=== PATIENT | male | born 1975 | race Caucasian/White ===

== ENCOUNTER 2019-12-02 10:32 | Outpatient (CLI) | payer OTHER, SELFPAY ==
--- NOTE | ~2019-12-02 | XR_ITS ---
EXAMINATION:XR cervical spine 4-5V DATE: 12/02/2019 10:57 INDICATION: Neck pain TECHNIQUE: AP, lateral, lateral swimmers and odontoid views of the cervical spine are provided. COMPARISON: None FINDINGS: Bone alignment is normal. There are changes of anterior fusion at C5-6. The odontoid is int act. No fracture is identified. The vertebral body heights are normal. The intervertebral disc spaces above and below the fusion are also normal. Prevertebral soft tissues are normal. IMPRESSION: 1. Changes of anterior fusion at C5-6 without acute findings. Reviewed, dictated and finalized at location A.
== END 2019-12-02 10:33 | disposition home or self-care (01) ==
PROVIDERS: PCP Family Medicine; Visit Provider Family Medicine
DX: M54.2 Cervicalgia (principal); M50.90 Cervical disc disorder, unspecified, unspecified cervical region; Z98.1 Arthrodesis status
CPT/HCPCS: 72050

== ENCOUNTER → 2020-04-15 10:00 | Outpatient (CLI) | payer OTHER, SELFPAY ==
--- NOTE | ~2020-04-15 | CT_ITS ---
EXAMINATION: CT abdomen pelvis w con EXAM DATE: 04/15/2020 10:25 INDICATION: Unspecified abdominal hernia, without obstruction. TECHNIQUE: Spiral CT of the abdomen and pelvis was performed following intravenous injection of 100 m L Omnipaque 350. Axial, coronal and sagittal images were reviewed. The dose-length product (DLP) fo r this examination was 923.65 mGy-cm. The exposure was tailored according to patient size (auto mA e xposure control), and iterative reconstruction (ASIR) was used as additional dose reduction technique . There is no prior study for comparison. FINDINGS: The liver, spleen, adrenal glands and pancreas are unremarkable. Gallbladder is unremarkab le. No biliary obstruction. Portal and splenic veins are patent. Kidneys enhance symmetrically. T here is no hydronephrosis. The prostate is unremarkable. The bladder is unremarkable. There is no retroperitoneal or pelvic lymphadenopathy. There are small to moderate size left, small right ingu inal fat-containing hernias. The appendix is normal. The stomach and small bowel are unremarkable. There is expected amount of c olonic stool. No free intraperitoneal gas. The heart is normal in size. There are no pericardial or pleural effusions. The lung bases are unremarkable. The bones are unremarkable. IMPRESSION: Small to moderate left, small right inguinal hernias. Reviewed, dictated and finalized at location B.
== END ==
PROVIDERS: PCP Family Medicine; Visit Provider Physician Assistant
DX: K40.20 Bilateral inguinal hernia, without obstruction or gangrene, not specified as recurrent (principal)
CPT/HCPCS: 74177; Q9967

== ENCOUNTER 2020-05-22 11:44 | Outpatient (CLI) | payer OTHER, SELFPAY | END 2020-05-22 11:45 | disposition home or self-care (01) | PROVIDERS: PCP Family Medicine; Visit Provider Surgery | DX: K40.20 Bilateral inguinal hernia, without obstruction or gangrene, not specified as recurrent (principal); Z01.818 Encounter for other preprocedural examination | CPT/HCPCS: 36415; 86850; 86900; 86901 ==

== ENCOUNTER 2020-06-01 01:37 | Outpatient (CLI) | payer OTHER, SELFPAY ==
[2020-06-01 20:39] LABS: SARS-CoV-2 RNA PCR Negative
== END 2020-06-01 01:38 | disposition home or self-care (01) ==
LOC: ANHCOVIDDT 01:37
PROVIDERS: PCP Family Medicine; Visit Provider Surgery
DX: Z01.812 Encounter for preprocedural laboratory examination (principal); Z20.828 Contact with and (suspected) exposure to other viral communicable diseases
CPT/HCPCS: 87635; C9803; U0003

== ENCOUNTER 2020-06-04 01:17 | Day surgery (SDC) | payer OTHER, SELFPAY ==
[2020-05-21 11:43] VITALS: BMI 28.8
[2020-06-04] VITALS (10 sets, daily range): BP systolic 111–139; BP diastolic 68–92; PULSE 50–88; RESP 12–16; TEMP 36.3–36.6; O2SAT 94–100
--- NOTE | 2020-06-04 10:44 | WPDANESEPPF ---
Anes - Initial Pre Proc Eval Procedure: Operation Date: 06/04/20 11:30 Proposed Procedures p Robotic Assisted Laparoscopic Bilateral Inguinal Hernia Repair With Mesh - Arcelia Ha MD Date/Time: 06/04/20 10:44 Surgeon: Arcelia Ha MD Pre Op Diagnosis: bilat inguinal hernia Patient Data Age: 44 Gender: M Height: 5 ft 9 in Weight: 88.45 kg Allergies Allergy/AdvReac Type Severity Reaction Status Date / Time atropine Allergy Severe Anaphylactic Verified 05/21/20 11:43 Shock oxybutynin Allergy Severe Anaphylactic Verified 05/21/20 11:43 Shock Home Medications Medication Instructions Recorded Confirmed Type acetaminophen 500 mg tablet 500 mg PO Q6H PRN 04/23/20 06/04/20 History ascorbic acid (vitamin C) [Vitamin 500 mg PO DAILY 05/21/20 06/04/20 History C] multivitamin 1 tablet PO DAILY 05/21/20 06/04/20 History Patient hx anesthesia problems: none Family hx anesthesia problems: none PMFSH Past Medical History Medical History Cervical disc disease Erectile dysfunction FH: CAD (coronary artery disease) H/O Meniere's disease History of skin cancer Lumbar disc disease Mixed hyperlipidemia Nephrolithiasis Surgical History Surgical History 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 S/P cervical spinal fusion 2016 Family History Family History Father Diabetes mellitus Hypertension Sibling Family history of mental disorder Mother Hypertension Grandparent Family history of malignant neoplasm of breast Social History Social History Smoking packs per day: 1 Smoking cigarettes per day: 20.0 Years smoked: 20 Smoking pack-years: 20.00 Smoking status: Unknown if ever smoked (uses e-cigarettes) Tobacco type: cigarettes and e-cigarettes/vaping Second hand tobacco smoke exposure: No Smoking end date: 07/24/14 Additional smoking assessment comments: QUIT CIGARETTES 2014, CURRENTLY USING VAPOR CIGARETTE Alcohol intake: current Substance use: current Substance use type: marijuana Last use: 1 WEEK AGO Additional occupation/education comments: [employer] Spiritual care concerns: No Anes - Eval Final PreProcedure Day of Procedure 06/04/20 10:44 Patient weight: overweight Heart: regular rate and rhythm Lungs: clear to auscultation Airway: Mallampati scale class II Neurological: alert and oriented Last oral intake: >/= 8 hours ASA classification: II Emergent: no Anesthetic plan: proceed Anesthesia type and monitoring: general ETT and standard monitoring Informed Consent: The patient's anesthetic plan and its attendant risks and benefits were discussed with the patient/family/POA. Questions were solicited and answers provided to the satisfaction of the patient/family/POA.
[2020-06-04] MEDS: SCOPOLAMINE 1.5 MG PATCH TRANSDERM (10:48)
[2020-06-04] MEDS: ACETAMINOPHEN 500 MG TABLET 1000 MG PO (10:48)
[2020-06-04] MEDS: KETOROLAC 15 MG/ML VIAL (*BKC) IV PUSH (10:49)
[2020-06-04] MEDS: LACTATED RINGERS 1,000 ML 30 ML IV CONT ×3 (10:49→15:12)
--- NOTE | 2020-06-04 11:15 | WPDHPUPDATE1 ---
History and Physical Update Update Date/Time: 06/04/20 11:15 History and Physical has been reviewed, including an updated exam of the patient. There are NO changes in the patient's condition. Risks, benefits, and alternatives have been discussed and questions answered. Patient agrees to proceed with procedure.
[2020-06-04] MEDS: MIDAZOLAM HCL (*CRX) 2 MG/2 ML VIAL IV PUSH (11:37)
[2020-06-04] MEDS: ceFAZolin 2 GM/D5W 50 ML 2 GM/50 ML BAG IVPB (11:40)
--- NOTE | 2020-06-04 14:03 | PM.PROC ---
Procedure Note - Detailed Date of procedure: 06/04/20 Pre-op diagnosis: bilat inguinal hernia Post-op diagnosis: same Procedure performed: robotic assisted bilateral inguinal hernia repair with 15 x 10 cm Progrip mesh bilaterally Description of procedure: Patient was brought into the operating room and placed in the supine position. After adequate induction of general anesthesia, the patient was prepped and draped in normal sterile fashion. A time-out was then done to verify the patient's identity, as well as the procedure being performed. Began by making a 8 mm incision in the supraumbilical region, a Veress needle was then placed into the peritoneal cavity. CO2 gas was then insufflated and after adequate pneumoperitoneum was achieved, the Veress needle was removed. I then placed an 8 mm trocar through this incision. I then placed the endoscope through this trocar site and under direct visualization placed 2 further 8 mm ports in the right and left mid abdomen. The [employer] robot was then docked to the 3 trocar sites. I then scrubbed out and went to the robotic console. Upon examining the pelvis, it was noted that the patient had bilateral inguinal hernias. I began by making a preperitoneal flap approximately 6 cm superior to the defect on the right. This flap was carried medially past the umbilical ligaments and laterally to the transversalis. I then began dissection of my medial compartment taking this down to the pubic tubercle. I then began the lateral dissection taking this down to the transversalis fascia. Once these compartments were achieved, I began dissection around the cord structures. It was noted at this point that the patient had a moderate sized indirect hernia. Patient also had a lipoma the cord. Using careful dissection, was able to reduce the lipoma cord as well separate the indirect hernia off the cord structures. Once this was adequately done, I went ahead and placed a 15 x 10 piece of Pro [employer] mesh into the abdominal cavity. The mesh was carefully positioned, centering the center of the mesh over the indirect defect. Once this was done, was very satisfied with our tension-free repair. Repeating the procedure on the left, I began by making a preperitoneal flap approximately 6 cm superior to the defect on the left. This flap was carried medially past the umbilical ligaments and laterally to the transversalis. I then began dissection of my medial compartment taking this down to the pubic tubercle. I was able to connect this to the repair on the right side. I then began the lateral dissection taking this down to the transversalis fascia. Once these compartments were achieved, I began dissection around the cord structures. It was noted at this point that the patient had a large indirect hernia. Patient also had a lipoma the cord. Using careful dissection, was able to reduce the lipoma cord as well separate the indirect hernia off the cord structures. Once this was adequately done, I went ahead and placed a 15 x 10 piece of Pro [employer] mesh into the abdominal cavity. The mesh was carefully positioned, centering the center of the mesh over the indirect defect. Once this was done, was very satisfied with our tension-free repair. I then closed the peritoneal flap with a running 2.0 V Lock suture on both sides. The abdomen was then desufflated, and all ports were removed. All incisions were then closed with the 4.0 monocryl suture. Dermabond was placed on each wound. The patient tolerated the procedure well, was extubated in the operating room postoperatively, and will now be transferred to the recovery room in stable condition. Implants: 15 x 10 progrip mesh x 2 Anesthesia: GETA Surgeon: Arcelia Ha MD Estimated blood loss (mL): 10 Drains: No Packing: No Pathology: none sent Complications: No immediate complications Condition: stable Disposition: PACU Findings: indirect bilateral inguinal hernia
[2020-06-04] MEDS: fentaNYL CITRATE INJ (*CRX) 100 MCG/2 ML VIAL 25 MCG IV PUSH ×8 (14:37→15:05)
[2020-06-04] MEDS: oxyCODONE HCL (*CRX) 5 MG TAB IR PO (15:48)
== END 2020-06-04 16:26 | disposition home or self-care (01) ==
PROVIDERS: PCP Family Medicine; Visit Provider Surgery
PROC: 8E0Y4CZ Robotic Assisted Procedure of Lower Extremity, Percutaneous Endoscopic Approach (ICD-10-PCS; CPT 49650; principal; 2020-06-04 11:30)
DX: K40.20 Bilateral inguinal hernia, without obstruction or gangrene, not specified as recurrent (principal); Z98.1 Arthrodesis status; F17.290 Nicotine dependence, other tobacco product, uncomplicated; F12.90 Cannabis use, unspecified, uncomplicated
CPT/HCPCS: 49650; S2900; A9270; C1781; J0690; J1100; J1170; J1885; J2250; J2405; J2704; J2710; J3010; J7030; J7120

== ENCOUNTER 2021-04-20 15:02 | Outpatient (CLI) | payer OTHER, SELFPAY ==
--- NOTE | ~2021-04-20 | US_ITS ---
EXAMINATION: US soft tissue groin RT DATE: 04/20/2021 16:10 INDICATION: Right groin pain TECHNIQUE: Multiple grayscale images of the region of concern at the right groin were obtained includ ing with Valsalva. COMPARISON: None FINDINGS/IMPRESSION: No abnormal masses, fluid collections or hernia identified at the region of concern. Reviewed, dictated and finalized at location A.
== END 2021-04-20 15:03 ==
PROVIDERS: Visit Provider Surgery
DX: R10.30 Lower abdominal pain, unspecified (principal); R30.0 Dysuria
CPT/HCPCS: 76882

== ENCOUNTER 2021-09-23 12:36 | Outpatient (CLI) | payer OTHER, SELFPAY ==
--- NOTE | ~2021-09-23 | XR_ITS ---
EXAMINATION: XR chest 2V DATE: 09/23/2021 12:50 INDICATION: Shortness of breath. TECHNIQUE: Frontal and lateral views of the chest were obtained. COMPARISON: Chest 2 views 02/26/2019, CT abdomen and pelvis 04/15/2020 FINDINGS: The chest demonstrates clear lungs without pneumonia, pleural effusion, or pneumothorax. Th e heart size is normal. There are changes of anterior fusion procedure in cervical spine. IMPRESSION: 1. No acute cardiopulmonary disease. Reviewed, dictated and finalized at location A. GER
== END 2021-09-23 12:37 ==
PROVIDERS: PCP Family Medicine; Visit Provider Family Medicine
DX: R06.02 Shortness of breath (principal); Z77.090 Contact with and (suspected) exposure to asbestos
CPT/HCPCS: 71046

== ENCOUNTER 2022-06-14 13:58 | Outpatient (CLI) | payer OTHER, SELFPAY ==
--- NOTE | ~2022-06-14 | MR_ITS ---
EXAMINATION: MR cervical spine wo con DATE: 06/14/2022 14:28 INDICATION: Cervical radiculopathy. TECHNIQUE: Magnetic resonance imaging (MRI) of the cervical spine was performed without intravenous c ontrast. Sequences included sagittal T2-weighted FSE, sagittal T2-weighted FS FSE, sagittal T1-weight ed FSE, axial MERGE, and axial T2-weighted FSE. COMPARISON: None FINDINGS: Bone alignment is normal. Vertebral body heights are normal. There are changes of anterior fusion procedure at C5-C6 with healed interbody bone graft and anterior plate and screws. There is mi ld chronic anterior wedging of T1 vertebral body. There is mildly decreased disc height at C3-C4 and C6-C7. The spinal cord signal intensity is normal. The following disc levels are specifically discuss ed: C2-C3: The disc does not extend beyond the endplate margin. There is no uncovertebral joint osteoarth ritis. There is mild bilateral facet joint osteoarthritis. There is no neural foraminal stenosis. The re is no central canal stenosis. C3-C4: The disc is bulging. There is moderate bilateral uncovertebral joint osteoarthritis. There is mild bilateral facet joint osteoarthritis. There is moderate right and mild left neural foraminal jose luis nosis. There is mild central canal stenosis. C4-C5: The disc is bulging. There is mild bilateral uncovertebral joint osteoarthritis. There is no f acet joint osteoarthritis. There is no neural foraminal stenosis. There is mild central canal stenosi s. C5-C6: There is mild bilateral uncovertebral joint hypertrophy. There is no facet joint osteoarthriti s. There is mild bilateral neural foraminal stenosis. There is mild central canal stenosis with ventr al indentation of the spinal cord. C6-C7: The disc is bulging with superimposed left central and foraminal zone extrusion. There is mild right and moderate left uncovertebral joint osteoarthritis. There is mild bilateral facet joint oste oarthritis. There is mild right and moderate left neural foraminal stenosis. There is mild central ca nal stenosis with ventral indentation of the spinal cord. C7-T1: There is a right foraminal extrusion. There is mild right uncovertebral joint osteoarthritis. There is mild right facet joint osteoarthritis. There is mild right neural foraminal stenosis. There is no central canal stenosis. IMPRESSION: 1. Moderate cervical spondylosis. 2. Anterior fusion procedure at C5-C6. Reviewed, dictated and finalized at location A. [employer]ENT
== END 2022-06-14 13:59 ==
PROVIDERS: PCP Family Medicine; Visit Provider Physician Assistant Medical
DX: M47.22 Other spondylosis with radiculopathy, cervical region (principal); Z98.1 Arthrodesis status
CPT/HCPCS: 72141

== ENCOUNTER → 2022-11-23 11:04 | Outpatient (CLI) | payer OTHER, SELFPAY ==
--- NOTE | ~2022-11-23 | MR_ITS ---
EXAMINATION: MR cervical spine wo con DATE: 11/23/2022 11:38 INDICATION: Cervical radiculopathy. TECHNIQUE: Magnetic resonance imaging (MRI) of the cervical spine was performed without intravenous c ontrast. COMPARISON: Cervical spine MRI 06/14/2022 FINDINGS: Bone alignment is normal. There is mild chronic anterior wedging of C4 and T1 vertebral bod ies. There are changes of anterior fusion procedure at C5-C6 with healed interbody bone graft and ant erior plate and screws. There is mildly decreased disc height at C3-C4 and moderately decreased disc height at C6-C7. The spinal cord signal intensity is normal. The following disc levels are specifical ly discussed: C2-C3: The disc does not extend beyond the endplate margin. There is mild left uncovertebral joint os teoarthritis. There is mild right facet joint osteoarthritis. There is no neural foraminal stenosis. There is no central canal stenosis. C3-C4: The disc is bulging. There is severe bilateral uncovertebral joint osteoarthritis. There is mo derate bilateral facet joint osteoarthritis. There is moderate right and mild left neural foraminal s tenosis. There is mild central canal stenosis. C4-C5: There is a central protrusion. There is mild bilateral uncovertebral joint osteoarthritis. The re is no facet joint osteoarthritis. There is no neural foraminal stenosis. There is mild central can al stenosis. C5-C6: There is mild bilateral uncovertebral joint hypertrophy. There is no facet joint osteoarthriti s. There is no neural foraminal stenosis. There is mild central canal stenosis. C6-C7: There is a left central extrusion. There is severe bilateral uncovertebral joint osteoarthriti s. There is mild bilateral facet joint osteoarthritis. There is a new 1.9 x 2.6 x 0.4 cm ganglion cys t arising from the right facet joint. There is mild right and moderate left neural foraminal stenosis . There is mild central canal stenosis. C7-T1: There is a right foraminal protrusion. There is moderate right and mild left uncovertebral gisell nt osteoarthritis. There is no facet joint osteoarthritis. There is mild right neural foraminal steno sis. There is no central canal stenosis. IMPRESSION: 1. Moderate cervical spondylosis with new ganglion cyst arising from the right facet joint at C6-C7. 2. Anterior fusion procedure at C5-C6. Reviewed, dictated and finalized at location A.
== END ==
PROVIDERS: PCP Family Medicine
DX: M96.0 Pseudarthrosis after fusion or arthrodesis (principal); M47.22 Other spondylosis with radiculopathy, cervical region; Z98.1 Arthrodesis status
CPT/HCPCS: 72141

== ENCOUNTER 2023-12-04 08:19 | Outpatient (CLI) | payer OTHER, SELFPAY ==
--- NOTE | ~2023-12-04 | MR_ITS ---
EXAMINATION: MR cervical spine wo con DATE: 12/04/2023 08:52 INDICATION: Cervical radiculopathy. TECHNIQUE: Magnetic resonance imaging (MRI) of the cervical spine was performed without intravenous c ontrast. COMPARISON: Cervical spine MRI 11/23/2022 FINDINGS: There is 4 degrees levocurvature of cervical spine. There is mild chronic anterior wedging of T1 vertebral body. There are changes of anterior fusion procedure at C5-C6 with healed interbody b one graft and anterior plate and screws. There is mildly decreased disc height at C3-C4 and moderatel y decreased disc height at C6-C7. There are foci of increased T2-weighted signal intensity in the spi nal cord at C5, C6, and C7 on axial images that are not reproduced on other sequences and may be nati fact. The following disc levels are specifically discussed: C2-C3: There is a central protrusion. There is mild bilateral uncovertebral joint osteoarthritis. The re is mild bilateral facet joint osteoarthritis. There is mild left neural foraminal stenosis. There is no central canal stenosis. C3-C4: The disc is bulging. There is severe right and moderate left uncovertebral joint osteoarthriti s. There is severe bilateral facet joint osteoarthritis. There is moderate right and mild left neural foraminal stenosis. There is mild central canal stenosis. C4-C5: The disc is bulging. There is mild bilateral uncovertebral joint osteoarthritis. There is mild bilateral facet joint osteoarthritis. There is mild bilateral neural foraminal stenosis. There is no central canal stenosis. C5-C6: There is moderate bilateral uncovertebral joint hypertrophy. There is no facet joint osteoarth ritis. There is mild left neural foraminal stenosis. There is mild central canal stenosis with ventra l indentation of the spinal cord. C6-C7: The disc is bulging with superimposed extrusion in left lateral recess. There is severe bilate ral uncovertebral joint osteoarthritis. There is mild bilateral facet joint osteoarthritis. There is moderate bilateral neural foraminal stenosis. There is mild central canal stenosis. C7-T1: The disc does not extend beyond the endplate margin. There is severe right uncovertebral joint osteoarthritis. There is mild bilateral facet joint osteoarthritis. There is mild right neural cortney inal stenosis. There is no central canal stenosis. IMPRESSION: 1. Moderate cervical spondylosis with interval resolution of the previously described ganglion cyst f rom the right C6-C7 facet joint. 2. Anterior fusion procedure at C5-C6. Reviewed, dictated and finalized at location A. IMPRESSION: 1. Moderate cervical spondylosis with interval resolution of the previously varinder cribed ganglion cyst from the right C6-C7 facet joint. 2. Anterior fusion procedure at C5-C6.
== END 2023-12-04 08:20 ==
PROVIDERS: PCP Family Medicine; Visit Provider Family Medicine
DX: M47.22 Other spondylosis with radiculopathy, cervical region (principal); Z98.1 Arthrodesis status
CPT/HCPCS: 72141

== ENCOUNTER 2025-07-13 11:16 | Emergency (ER) | payer OTHER, SELFPAY ==
--- OUTSIDE RECORDS SUMMARY | 2025-07-13 11:19 | XMS_ITS | Clinical Summary ---
Author Organization [facility] Address [address] [place] [address] Phone Care Team Providers Care Ship Manager Name Role Phone Provider, None Primary Care Provider Unavailabl e Allergies Active Allergy Reactions Criticality Noted Date Comments Atropine Anaphylaxis 08/25/2016 Oxybutynin Anaphylaxis 08/25/2016 Medications acetaminophen (TYLENOL) 500 MG Tablet Take 1,000 mg by mouth every 4 hours as needed for Pain. Active Active Problems Problem Noted Date Diagnosed Date Herniated cervical disc 09/01/2016 Family History Medical History Relation Name Comments Diabetes Father Hypertension Father Relation Name Status Comments Father Alive Mother Social History Tobacco Use Types Packs/Day Years Used Date Smoking Tobacco: Former Cigarettes 0 Q uit: 08/25/2014 Alcohol Use Standard Drinks/Week Comments Yes 0 (1 standard drink = 0.6 oz pur e alcohol) Sex and Gender Information Value Date Recorded Sex Assigned at Not on file Legal Sex Male 3:36 PM [employer] Gender Identity Not on file Sexual Orientation Not on file Last Filed Vital Signs Vital Sign Reading Time Taken Comments Blood Pressure 120/68 09/02/2016 7:50 AM [employer] Pulse 72 09/02/2016 7:50 AM [employer] Temperature 36.8 C (98.3 F) 09/02/2016 7:50 AM [employer]OWER Respiratory Rate 20 09/02/2016 7:50 AM [employer]OWER Oxygen Saturation 94% 09/02/2016 9:24 AM [employer]OWER Inhaled Oxygen Concentration - - Weight 90.7 kg (200 lb) 09/01/2016 1:01 PM [employer] Height 175.3 cm (5' 9) 09/01/2016 1:01 PM [employer] Body Mass Index 29.53 09/01/2016 1:01 PM [employer] Plan of Treatment Health Maintenance Due Date Last Done Comments Hepatitis C Virus (HCV) Screening 1975 TdaP Immunization 1975 Hepatitis B Immunization (1 of 3 - 19+ 3-dose series) 10/15/1994 Cologuard 10/15/2020 Colonoscopy 10/15/2020 Colorectal Cancer Screening 10/15/2020 Immunochemical Fecal Occult Blood 10/15/2020 Influenza Immunization (#1) 2025 SARS-COV-2 Immunization ( - season) 2025 Respiratory Syncytial Virus (RSV) Immunization (Adult) (1 - 1-dose 75+ series) 10/15/2050 Human Papillomavirus (HPV) Immunization Aged Out No longer eligible b ased on patient's age to complete this topic Meningococcal Immunization (ACWY) Aged Out No longer eligible based on patient's age to complete this topic Pneumococcal Immunization Combined Aged Out No longer eligible based on patient's age to complete this topic Rotavirus Immunization Aged Out No lo nger eligible based on patient's age to complete this topic Medical Devices Implanted Type Area Abrasive Grinder Device Identifier Shelf Expiration Date Model / Serial / Lot Allograft Cortical Cancellous Block [facility] - [id number] Implanted:Qty: 1 on 09/01/2016 by Darci Brown [facility] IMPLANT N/A: Spine Cervical [employer] 05/11/2019 [id number] / / [id number] Pro[employer] Plus 2.5cc Implanted:Qty: 1 on 09/01/2016 by Darci Brown [facility] N/A: Spine Cervical 03/02/2018 [id number] / / [id number] 23mm Plate Implanted:Qty: 1 on 09/01/2016 by Darci Brown MD at [facility] N/A: Spine Cervical [employer] [id number] / / [id number] 3.5 X 13 Screw Implanted:Qty: 1 on 09/01/2016 by Darci Brown MD at [facility] N/A: Spine Cervical [employer] [id number] / / [id number] Advance Directives * Full Code (Latest Code Status on File) Date Activated Date Inactivated Comments 09/01/2016 5:42 AM 09/02/2016 2:50 PM CPR-Full Linda tment: FULL ARREST: Attempt Resuscitation/CPR wit intubation and mechanical ventilation. PRE-ARREST: Use entire range of life support measures to stabilize the patient. Care Teams Ship Manager Relationship Specialty Start Date End Date Provider, None [place] PCP - General 08/26/16
--- OUTSIDE RECORDS SUMMARY | 2025-07-13 11:19 | XMS_ITS | Encounter Summary ---
Author Organization [facility] Address 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 Gender Identity Not on file Sexual Orientation Not on file documented as of this encounter Plan of Treatment Not on file documented as of this encounter Procedures Procedure Name Priority Date/Time Associated Diagnosis Comments CBC WITH DIFFERENTIAL Routine 12/03/2008 4:33 AM CDT PHOSPHORUS Routine 12/03/2008 4:33 AM CDT MAGNESIUM LEVEL Routine 12/03/2008 4:33 AM CDT BASIC METABOLIC PANEL Routine 12/03/2008 4:33 AM CDT MRSA ACTIVE SURVEILLANCE CULTURE Timed Study 12/02/2008 3:43 PM CDT PT AND APTT Stat 12/02/2008 6:30 AM CDT HEMOGLOBIN AND HEMATOCRIT Stat 12/02/2008 6:30 AM CDT BASIC METABOLIC PANEL Stat 12/02/2008 6:30 AM CDT TYPE AND SCREEN Routine 12/02/2008 6:09 AM CDT documented in this encounter Results * PHOSPHORUS (12/03/2008 4:33 AM CDT) [facility] PHOSPHORUS 3.4 2.5 - 4.5 mg/dL [facility] Blood specimen (specimen) 12/03/2008 4:33 AM CDT 12/03/2008 4:36 AM CDT Corey Nicole MD CHEMISTRY ORDERABLES Final R esult Performing Organization Address [facility] Phone Number INTERFACE SYSTEM Refer to clinic/hospital department [facility] CLIA# [id number] [address] [place] [address] * MAGNESIUM LEVEL (12/03/2008 4:33 AM CDT) [facility] MAGNESIUM 1.8 1.5 - 2.5 mg/dL [facility] Blood specimen (specimen) 12/03/2008 4:33 AM CDT 12/03/2008 4:36 AM CDT Corey Nicole MD CHEMISTRY ORDERABLES Final R esult Performing Organization Address [facility] Phone Number INTERFACE SYSTEM Refer to clinic/hospital department [facility] CLIA# [id number] [address] [place] [address] * (ABNORMAL) BASIC METABOLIC PANEL (12/03/2008 4:33 AM CDT) [facility] CHLORIDE 100 96 - 108 mmol/L [facility] GLUCOSE 125(H) 65 - 99 mg/dL [facility] SODIUM 135 135 - 145 mmol/L [facility] CALCIUM 8.4(L) 8.6 - 10.2 mg/dL [facility] CO2 25 22 - 30 mmol/L [facility] CREATININE 0.83 0.67 - 1.17 mg/dL [facility] POTASSIUM 3.6 3.5 - 4.9 mmol/L [facility] BUN 12 6 - 20 mg/dL [facility] GFR, >60 >=60 mL/min/1. 7 sq meter [facility] GFR >60 >=60 mL/min/1. 7 sq meter [facility] Comment: Modification of Diet in Renal Disease (MDRD) study formula. Estimated GFR rate interpretative information for both Americans and non- Americans is available on the [facility] Intranet at: [email or web address] Select: Lab Policies and Procedures Select: Reference Ranges - GFR Blood specimen (specimen) 12/03/2008 4:33 AM CDT 12/03/2008 4:36 AM CDT us Corey Nicole MD CHEMISTRY ORDERABLES Edited INTERFACE SYSTEM Refer to clinic/hospital department [facility] CLIA# [id number] [address] [facility] [address] [address] [place], [place] [address] * (ABNORMAL) CBC WITH DIFFERENTIAL (12/03/2008 4:33 AM CDT) HEMOGLOBIN 13.5(L) 13.6 - 16.5 g/dL [facility] RDW 13.1 11.5 - 14.5 % [facility] WBC 15.2(H) 4.0 - 9.8 K/uL [facility] MCH 30.5 27.2 - 32.6 pg [facility] MPV 10.9 9.3 - 12.4 fL [facility] HEMATOCRIT 39.8(L) 40.0 - 48.0 % [facility] RDW-STDEV 43.0 37.1 - 48.7 fL [facility] RBC 4.43(L) 4.50 - 5.40 M/uL [facility] MCHC 33.9 31.5 - 35.5 % [facility] MCV 89.8 82.0 - 99.0 fL [facility] PLATELETS 227 140 - 350 K/uL [facility] EOSINOPHIL ABSOLUTE 0.07 0.00 - 0.70 K/uL [facility] LYMPHOCYTES 15(L) 16 - 45 % [facility] LYMPHOCYTE ABSOLUTE 2.32 0.70 - 4.50 K/uL [facility] BASOPHILS 0 0 - 2 % [facility] BASOPHILS ABSOLUTE 0.00 0.00 - 0.20 K/uL [facility] MONOCYTES 9 3 - 13 % [facility] MONOCYTE ABSOLUTE 1.29 0.10 - 1.30 K/uL [facility] NEUTROPHILS 76(H) 45 - 70 % [facility] NEUTROPHIL ABSOLUTE 11.52(H) 1.90 - 7.00 K/uL [facility] EOSINOPHILS 1 0 - 7 % [facility] Blood specimen (specimen) 12/03/2008 4:33 AM CDT 12/03/2008 4:36 AM CDT us Corey Nicole MD HEMATOLOGY ORDERABLES Edited INTERFACE SYSTEM Refer to clinic/hospital department [facility] CLIA# [id number] [address] [place], [place] [address] * MRSA ACTIVE SURVEILLANCE (12/02/2008 3:43 PM CDT) PRELIMINARY REPORT Pending [facility] FINAL REPORT No methicillin resistant Staphylococcus aureus isolated. [facility] Андрей 12/02/2008 3:43 PM CDT 12/03/2008 7:19 AM CDT us Corey Nicole MD MICROBIOLOGY - GENERAL ORDER MARLENY Final Result Performing Organization Address [facility] de Phone Number INTERFACE SYSTEM Refer to clinic/hospital department [facility] CLIA# [id number] [address] [place] [address] * HEMOGLOBIN AND HEMATOCRIT (12/02/2008 6:30 AM CDT) HEMOGLOBIN 15.7 13.6 - 16.5 g/dL [facility] HEMATOCRIT 45.1 40.0 - 48.0 % [facility] Blood specimen (specimen) 12/02/2008 6:30 AM CDT 12/02/2008 6:41 AM CDT us Carlos Hernandez MD HEMATOLOGY ORDERABLES Final Res ult Performing Organization Address [facility] de Phone Number INTERFACE SYSTEM Refer to clinic/hospital department [facility] CLIA# [id number] [address], [place] [address] * PT AND APTT (12/02/2008 6:30 AM CDT) INR 1.0 0.9 - 1.1 [facility] Comment: INR Therapeutic Range: Adult: 2.0 - 3.0 for pulmonary embolism or prophylaxis against venous thrombosis or systemic embolization. 2.0 - 3.0 for patients with tissue heart valves. 2.5 - 3.5 for patients with mechanical heart valves or post IA. Pediatric (12 years and under): 1.5 - 3.0 Although the target range in children is not well established, INR values of 1.5 - 3.0 are recommended for most patients. Higher values have been used in children with prosthetic cardiac valves and hereditary clotting disorders. (<3 days) therapeutic ranges have not been established. PROTIME 12.8 12.7 - 15.1 Seconds [facility] PTT 31.5 24.4 - 36.4 Seconds [facility] Comment: PTT Therapeutic Range: Heparin Level PTT (seconds) <0.10 units/mL <53 0.10 - 0.30 units/mL 53 - 67 0.30 - 0.70 units/mL* 67 - 95* 0.70 - 1.00 units/mL 95 - 116 *corresponds to therapeutic range for unfractionated heparin Blood specimen (specimen) 12/02/2008 6:30 AM CDT 12/02/2008 6:41 AM CDT Narrative INTERFACE SYSTEM - 12/02/2008 7:30 AM CDT RM 29 us Carlos Hernandez MD HEMATOLOGY ORDERABLES Edited INTERFACE SYSTEM Refer to clinic/hospital department [facility] CLIA# [id number] [address] [place], [place] [address] * BASIC METABOLIC PANEL (12/02/2008 6:30 AM CDT) POTASSIUM 3.9 3.5 - 4.9 mmol/L [facility] BUN 20 6 - 20 mg/dL [facility] CHLORIDE 104 96 - 108 mmol/L [facility] GLUCOSE 92 65 - 99 mg/dL [facility] SODIUM 139 135 - 145 mmol/L [facility] CALCIUM 9.5 8.6 - 10.2 mg/dL [facility] CO2 25 22 - 30 mmol/L [facility] CREATININE 0.87 0.67 - 1.17 mg/dL [facility] GFR, >60 >=60 mL/min/1.7 sq meter [facility] GFR >60 >=60 mL/min/1.7 sq meter [facility] Comment: Modification of Diet in Renal Disease (MDRD) study formula. Estimated GFR rate interpretative information for both Americans and non- Americans is available on the [facility] Intranet at: [email or web address] Select: Lab Policies and Procedures Select: Reference Ranges - GFR Blood specimen (specimen) 12/02/2008 6:30 AM CDT 12/02/2008 6:41 AM CDT us Carlos Hernandez MD CHEMISTRY ORDERABLES Edited Performing Organization Address [facility] de Phone Number INTERFACE SYSTEM Refer to clinic/hospital department [facility] CLIA# [id number] [address] [place] [address] * TYPE AND SCREEN (12/02/2008 6:09 AM CDT) ABO/RH TYPE A Negative [facility] HISTORY CHECK No Historical ABO/Rh [facility] SPECIMEN LIFE 3 days from drawdate [facility] ANTIBODY SCREEN Negative [facility] Blood specimen (specimen) 12/02/2008 6:09 AM CDT us Carlos Hernandez MD BLOOD BANK ORDERABLES Edited Performing Organization Address [facility] Phone Number INTERFACE SYSTEM Refer to clinic/hospital department [facility] CLIA# [id number] [address] [place] [address] documented in this encounter Visit Diagnoses Not on filedocumented in this encounter
--- OUTSIDE RECORDS SUMMARY | 2025-07-13 11:19 | XMS_ITS | Patient Health Record ---
Author Organization [facility] Address [address] [facility] [place]. [address] [place] [phone] Care Team Providers Care News Anchor Name Role Phone Hyacinth Hung MD Primary Care Provider Unavailabl e Allergies Allergen (clinical drug ingredient) Drug/Non Drug Allergy documented on EMR Reaction Allergy Type Onset Date Status Ditropan Unknown Drug Allergy Active atropine Atropine Unknown Drug Allergy Active Reason For Referral No Information Medications Medication SIG (Take, Route, Fr equency, Duration) Notes Start Date End Date Status prednisoLONE Acetate Active OTC/Vitamins Tylenol Active Social History Tobacco Use: Social History Observation Description Date Details (start date - stop date) Former Smoker NA - NA Tobacco Use/Smoking Question Answer Notes Are you a former smoker How long has it been since you last smoked? 5-10 years Problems Problem Type SNOMED Code ICD Code Onset Dates Problem Status W/U Status Risk Notes Problem Screening for malignant neoplasm of colon (040331780) Encounter for screening for malignant neoplasm of colon (Z12.11) Active confirmed Problem Diarrhea (20165164) Diarrhea (R19.7) Active confirmed Plan Of Treatment No Information Insurance Providers Payer Name Payer Address Payer Phone Subscriber Number Group Number Insured Name Patient Relationship to Insured Coverage Start Date Coverage End Date [facility] Choice/ choice Plus [id number] [address] [place] [address] [id number] Fady Jorgensen Self - patient is the insured Medical (General) History Medical History History ICD Code Hearing Loss Meniere's Disease Surgical History Surgery Date(Month/Year) Colonoscopy 10/2021 C5-C6 Fusion Rotator Cuff Kidney Stones
--- OUTSIDE RECORDS SUMMARY | 2025-07-13 11:19 | XMS_ITS | Clinical Summary ---
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
--- OUTSIDE RECORDS SUMMARY | 2025-07-13 11:19 | XMS_ITS | Clinical Summary ---
Author Organization [facility] Address [address] [place] [address] Care Team Providers Care Cover Stitch Machine Operator Name Role Phone Unavailable Primary Care Provider Unavailabl e Social History Tobacco Use Types Packs/Day Years Used Date Smoking Tobacco: Never Assessed Sex and Gender Information Value Date Recorded Sex Assigned at Not on file Legal Sex Male 1:05 PM EST Gender Identity Not on file Sexual Orientation Not on file Plan of Treatment Health Maintenance Due Date Last Done Comments Colorectal Cancer: COLONOSCO PY Screening every 10 yrs (or Modifier) 1975 Depression: Screening Annual ly using PHQ-2/9 in Adults 18 yrs or above (or HM Modifier)([facility]) 10/15/1993 Hepatitis C Virus Infection in Adolescents and Adults: Screening (or Modifier) ([facility]) 10/15/1993 SDOH Screening Reminder: Annually for all adults ([facility]) 10/15/1993 Tobacco Smoking Cessation: i n Adults excluding Women: Behavioral and Pharmacotherapy Interventions ([facility]) 10/15/1993 DTaP/Tdap/Td Vaccines ([facility]) (1 - Tdap) 10/15/1994 Colorectal Cancer Screening 45 -75 Yrs (or HM Modifier) 10/15/2020 Colorectal Cancer: FLEXIBLE SIGMOIDOSCOPY Screening every 5 yrs 10/15/2020 Colorectal Cancer: Fecal Immunochemical Test (FIT) Annually [facility] 10/15/2020 Colorectal Cancer: High-sensitivity gFOBT Screening Annually [facility] 10/15/2020 Colorectal Cancer: Stool Cologuard Screening every 3 yrs 10/15/2020 Colorectal Cancer:CT Colonography Screening every 5 yrs 10/15/2020 Flu Vaccination: Yearly for ages 18mos through 64 years (or Modifier)([facility]) 02/21/2025 COVID-19 Vaccine Screening: Initial Series and Booster Status ([facility]) ( season) 2025 11/11/2020, 10/23/2020 Zoster/Shingles Vaccine Seri es Screening: Adults aged 18+ yrs (or HM Modifiers)([facility]) (1 of 2) 10/15/2025 Pneumococcal Vaccination Screening: Pts 0-19 & 19-49 yrs of age ([facility]) Aged Out No longer eligible based on patient's age to complete this topic Medical Devices Not on file Insurance
[2025-07-13 11:25] VITALS: BP 156/96; PULSE 87; RESP 16; TEMP 36.6; O2SAT 99
--- NOTE | 2025-07-13 11:43 | PC.NURSE ---
patient presents to desk stating that he was going to leave. advise to go to ER if needed. alert and oriented x4.
--- OUTSIDE RECORDS SUMMARY | 2025-07-13 11:51 | XMS_ITS | Clinical Summary ---
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 Gender Identity Not on file Sexual Orientation Not on file Last Filed Vital Signs Vital Sign Reading Time Taken Comments Blood Pressure 120/68 09/02/2016 7:50 AM PHLEBOTOMIST SUPERVISOR/INSTRUCTOR Pulse 72 09/02/2016 7:50 AM PHLEBOTOMIST SUPERVISOR/INSTRUCTOR Temperature 36.8 C (98.3 F) 09/02/2016 7:50 AM PHLEBOTOMIST SUPERVISOR/INSTRUCTOR Respiratory Rate 20 09/02/2016 7:50 AM PHLEBOTOMIST SUPERVISOR/INSTRUCTOR Oxygen Saturation 94% 09/02/2016 9:24 AM PHLEBOTOMIST SUPERVISOR/INSTRUCTOR Inhaled Oxygen Concentration - - Weight 90.7 kg (200 lb) 09/01/2016 1:01 PM PHLEBOTOMIST SUPERVISOR/INSTRUCTOR Height 175.3 cm (5' 9) 09/01/2016 1:01 PM PHLEBOTOMIST SUPERVISOR/INSTRUCTOR Body Mass Index 29.53 09/01/2016 1:01 PM PHLEBOTOMIST SUPERVISOR/INSTRUCTOR Plan of Treatment Health Maintenance Due Date [...] this topic Medical Devices Implanted Type Area Fermentation Engineer Device Identifier Shelf Expiration Date Model / Serial / Lot Allograft Cortical Cancellous Block [facility] - [id number] Implanted:Qty: 1 on 09/01/2016 by Darci Brown MD at [facility] IMPLANT N/A: Spine Cervical [employer] 05/11/2019 [id number] / / [id number] Progenix Plus 2.5cc Implanted:Qty: 1 on 09/01/2016 by Darci Brown MD at [facility] N/A: Spine Cervical 03/02/2018 [id number] / / [id number] 23mm Plate Implanted:Qty: 1 on 09/01/2016 by Darci Brown MD at [facility] N/A: Spine Cervical [employer] [id number] / / [id number] 3.5 X 13 Screw Implanted:Qty: 1 on 09/01/2016 by Darci Brown MD at [facility] N/A: Spine Cervical [employer] [id number] / / [id number] Advance Directives * Full Code (Latest Code Status on File) Date Activated Date Inactivated Comments 09/01/2016 5:42 AM 09/02/2016 2:50 PM CPR-Full Linda tment: FULL ARREST: Attempt Resuscitation/CPR wit intubation and mechanical ventilation. PRE-ARREST: Use entire range of life support measures to stabilize the patient. Care Teams Rhit Relationship Specialty Start Date End Date Provider, None [place] PCP - General 08/26/16
--- OUTSIDE RECORDS SUMMARY | 2025-07-13 11:51 | XMS_ITS | Clinical Summary ---
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
--- OUTSIDE RECORDS SUMMARY | 2025-07-13 11:51 | XMS_ITS | Clinical Summary ---
Author Organization [facility] Address [address] [place] [address] Care Team Providers Care Sql Architect Name Role Phone Hyacinth Hung MD Primary Care Provider [phone] Raul Bella BREAK OUT MAN Unavailable [phone] Allergies Active Allergy Reactions Criticality Noted Date Comments Atropine Anaphylaxis High 08/25/2016 Oxybutynin Anaphylaxis High 08/25/2016 Medications acidophilus-pec tin, citrus 100 million cell-10 mg capsuleIndicati ons:supplement Take 2 capsules by mouth efficiency engineer before breakfast Active multivitamin capsuleIndicati ons:Vitamin Deficiency Prevention Take 1 capsule by mouth every morning Active melatonin tabletIndicatio ns:sleep Take 1 tablet (3 mg total) by mouth nightly Active acetaminophen 500 mg capsuleIndicati ons:Pain Take 2 capsules (1,000 mg total) by mouth every 6 (six) hours as needed for pain . Please do not exceed 4 grams of acetaminophen daily. 3 Active cyclobenzaprine (FLEXERIL) 10 mg tabletIndicatio ns:Muscle Spasm Take 1 tablet (10 mg total) by mouth 3 (three) times a day 90 tablet 3 Active senna-docusate (PERICOLACE) 8.6-50 mgIndications:c onstipation Take 2 tablets by mouth 2 (two) times a day 60 tablet 3 Active tamsulosin (FLOMAX) 0.4 mg extended release capsuleIndicati ons:retention Take 1 capsule (0.4 mg total) by mouth daily as needed (Urinary retention, home meds) 7 capsule 3 Active diazePAM (VALIUM) 5 mg tabletIndicatio ns:Muscle Spasm Take 1 tablet (5 mg total) by mouth every 8 (eight) hours as needed for muscle spasms 20 tablet 3 Active naloxone (NARCAN) 4 mg/actuation spray,non-aeros olIndications:O piate-Induced Respiratory Depression Administer 1 spray into affected nostril(s) as needed for opioid reversal Call 911. Administer a single spray in one nostril. Repeat every 3 minutes as needed if no or minimal response. 1 each 3 Active celecoxib (CeleBREX) 200 mg capsule Take 1 capsule (200 mg total) by mouth daily 3 Active Active Problems Problem Noted Date Diagnosed Date CSF leak 01/05/2023 Postoperative CSF leak 12/16/2022 Cervical radiculopathy 09/21/2022 Cervical disc disorder with radiculopathy of cervical region 08/16/2022 Overview (08/16/2022): Added automatically from request for surgery [id number] Diarrhea 06/24/2022 Biceps tendinitis of right upper extremity 03/04 Overview (03/04/2020): Added automatically from request for surgery [id number] Superior glenoid labrum lesion of right shoulder 03/04/2020 Overview (03/04/2020): Added automatically from request for surgery [id number] Arthritis of right acromioclavicular joint 03/04 Overview (03/04/2020): Added automatically from request for surgery [id number] Tear of right rotator cuff 03/04/2020 Overview (03/04/2020): Added automatically from request for surgery [id number] Herniated cervical disc 09/01/2016 Immunizations Immunization Administration Dates Next Due Influenza, Quadrivalent, Spl it, Preservative Free, Intramuscular 05/05/2021 Surgical History Surgery Date Site/Laterality Comments VESTIBULAR NERVE SECTION 07/24/2008 - 07/23/2009 SPINAL FUSION fusion C5-6 LAPAROSCOPIC INGUINAL HERNIA REPAIR 06/04/[address] Ha Medical History Medical History Date Comments Kidney stone GERD (gastroesophageal reflux disease) Cancer (HCC) skin ca Family History Medical History Relation Name Comments Alcohol abuse Other Arthritis Other Cancer Other Mental illness Other Anesthesia problems Neg Hx Malig Hypertension Neg Hx Malig Hyperthermia Neg Hx Pseudochol deficiency Neg Hx Relation Name Status Comments Other Social History Tobacco Use Types Packs/Day Years Used Date Smoking Tobacco: Former Cigarettes Q uit: 2014 Smokeless Tobacco: Never Tobacco Cessation:Counseling Given: Not Answered Alcohol Use Standard Drinks/Week Comments Yes 0 (1 standard drink = 0.6 oz pur e alcohol) AUDIT-C Answer Date Recorded Q1: How often do you have a drink containing alcohol? Never 12/30/2022 Q2: How many drinks containi ng alcohol do you have on a typical day when you are drinking? Patient does not drink Q3: How often do you have si x or more drinks on one occasion? Never 12/30/2022 Personal Safety Answer Date Recorded Have you ever been in or are you currently in a harmful physical or emotional relationship or is someone making you feel afraid or unsafe? 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 Gender Identity Not on file Sexual Orientation Not on file Last Filed Vital Signs Vital Sign Reading Time Taken Comments Blood Pressure 132/76 01/05/2023 7:05 AM CDT Pulse 64 01/05/2023 7:05 AM CDT Temperature 37.1 C (98.7 F) 01/05/2023 7:05 AM CDT Respiratory Rate 18 01/05/2023 4:00 AM CDT Oxygen Saturation 94% 01/05/2023 7:05 AM CDT Inhaled Oxygen Concentration - - Weight 85 kg (187 lb 6.3 oz) 01/04/2023 2:23 PM CDT Height 175.3 cm (5' 9.02) 01/04/2023 2:23 PM CD T Body Mass Index 27.66 01/04/2023 2:23 PM CDT Plan of Treatment Health Maintenance Due Date Last Done Comments Colon Cancer Screening-Colonoscopy 1975 Depression Screening 1975 Hepatitis C Screening 1975 DTaP/Tdap/Td Vaccine (1 - Tdap) 10/15/1986 Hepatitis B Screening 10/15/1993 Regular Well Visit/Exam 18-64 10/15/1993 Pneumococcal vaccine <65 (1 of 2 - PCV) 10/15/1994 Covid-19 Vaccine (3 - season) 2025, 10/23/2020 Influenza Vaccine (#1) 2025 05/05/2021 Medical Devices Implanted Type Area Crushing Machine Operator Device Identifier Shelf Expiration Date Model / Serial / Lot [employer] 2504-1 Regenerate Tendon Gardner Suture - [id number] Implanted:Qty: 1 on 03/19/2020 by Raul Vega MD at [facility] [employer] 12/17/2022 2504-1 / / [id number] [employer]/Or tho 4566 Implant Large Arthroscopic Bioinductive W/ Delivery Device - [id number] Implanted:Qty: 1 on 03/19/2020 by Raul Vega MD at [facility] [employer] 05/27/2022 [id number] / / [id number] [employer]Or tho [id number] Gardner Bone With Arthroscopic Delivery System Advanced - [id number] Implanted:Qty: 1 on 03/19/2020 by Raul Vega MD at [facility] [employer] tho 07/27/2022 [id number] / / [id number] Integra [employer] Julia Duragen Plus 2x2in Patch Resorbable Suturable Cranial Dura Graft [id number] - [id number] Implanted:Qty: 1 on 01/04/2023 by Silvestre Ferro DO at [facility] N/A: Cervical- Lumbar Spine [employer] Julia [id number] 01/20/2025 [id number] / / [id number] Insurance [facility] CHOICE PLUS CHOICE PLUS [id number] CHOICE PLUS Advance Directives For more information, please contact: [phone] * Full Code (Latest Code Status on File) Date Activated Date Inactivated Comments 01/04/2023 2:48 PM 01/05/2023 4:49 PM Care Teams Sql Architect Relationship Specialty Start Date End Date Hyacinth Hung MD PCP - General Family Medicine 04/02/18 Raul Bella NP [address] [place] [address] DR CARRASQUILLO [address] [place] [id number] Nurse Practitioner Nurse Practitioner 03/19/20
--- OUTSIDE RECORDS SUMMARY | 2025-07-13 11:51 | XMS_ITS | Clinical Summary ---
Author Organization [facility] [employer] [facility] Address [address] [place] [address] Care Team Providers Care Lab Rep Name Role Phone Unavailable Primary Care Provider [...] Adults 18 yrs or above (or HM Modifier)([facility]) 10/15/1993 Hepatitis C Virus Infection in Adolescents and Adults: Screening (or Modifier) ([facility]) 10/15/1993 SDOH Screening Reminder: Annually for all adults ([facility]) 10/15/1993 Tobacco Smoking Cessation: i n Adults excluding Women: Behavioral and Pharmacotherapy Interventions ([facility]) 10/15/1993 DTaP/Tdap/Td Vaccines ([facility]) (1 - Tdap) 10/15/1994 Colorectal Cancer Screening 45 -75 Yrs (or HM Modifier) 10/15/2020 Colorectal Cancer: FLEXIBLE SIGMOIDOSCOPY Screening every 5 yrs 10/15/2020 Colorectal Cancer: Fecal Immunochemical Test (FIT) Annually [facility] 10/15/2020 Colorectal Cancer: High-sensitivity gFOBT Screening Annually [facility] 10/15/2020 Colorectal Cancer: Stool Cologuard Screening every 3 yrs 10/15/2020 Colorectal Cancer:CT Colonography Screening every 5 yrs 10/15/2020 Flu Vaccination: Yearly for ages 18mos through 64 years (or Modifier)([facility]) 02/21/2025 COVID-19 Vaccine Screening: Initial Series and Booster Status ([facility]) ( season) 2025 11/11/2020, 10/23/2020 Zoster/Shingles Vaccine Seri es Screening: Adults aged 18+ yrs (or HM Modifiers)([facility]) (1 of 2) 10/15/2025 Pneumococcal Vaccination Screening: Pts 0-19 & 19-49 yrs of age ([facility]) Aged Out No longer eligible based on patient's age to complete this topic Medical Devices Not on file Insurance
--- OUTSIDE RECORDS SUMMARY | 2025-07-13 11:51 | XMS_ITS | Encounter Summary ---
Author Organization [facility] Address 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 Gender Identity Not on file Sexual Orientation [...] Results * PHOSPHORUS (12/03/2008 4:33 AM CDT) [facility] PHOSPHORUS 3.4 2.5 - 4.5 mg/dL [facility] Blood specimen (specimen) 12/03/2008 4:33 AM CDT 12/03/2008 4:36 AM CDT Corey Nicole MD CHEMISTRY ORDERABLES Final R esult Performing Organization Address [facility] Phone Number INTERFACE SYSTEM Refer to clinic/hospital department [facility] CLIA# [id number] [address] [place] [address] * MAGNESIUM LEVEL (12/03/2008 4:33 AM CDT) [facility] MAGNESIUM 1.8 1.5 - 2.5 mg/dL [facility] Blood specimen (specimen) 12/03/2008 4:33 AM CDT 12/03/2008 4:36 AM CDT Corey Nicole MD CHEMISTRY ORDERABLES Final R esult Performing Organization Address [facility] Phone Number INTERFACE SYSTEM Refer to clinic/hospital department [facility] CLIA# [id number] [address] [place] [address] * (ABNORMAL) BASIC METABOLIC PANEL (12/03/2008 4:33 AM CDT) [facility] CHLORIDE 100 96 - 108 mmol/L [facility] GLUCOSE 125(H) 65 - 99 mg/dL [facility] SODIUM 135 135 - 145 mmol/L [facility] CALCIUM 8.4(L) 8.6 - 10.2 mg/dL [facility] CO2 25 22 - 30 mmol/L [facility] CREATININE 0.83 0.67 - 1.17 mg/dL [facility] POTASSIUM 3.6 3.5 - 4.9 mmol/L [facility] BUN 12 6 - 20 mg/dL [facility] GFR, >60 >=60 mL/min/1. 7 sq meter [facility] GFR >60 >=60 mL/min/1. 7 sq meter [facility] Comment: Modification of Diet in Renal Disease (MDRD) study formula. Estimated GFR rate interpretative information for both Americans and non- Americans is available on the [facility] Intranet at: [email or web address] Select: Lab Policies and Procedures Select: Reference Ranges - GFR Blood specimen (specimen) 12/03/2008 4:33 AM CDT 12/03/2008 4:36 AM CDT us Corey Nicole MD CHEMISTRY ORDERABLES Edited INTERFACE SYSTEM Refer to clinic/hospital department [facility] CLIA# [id number] [address] [facility] [place] [place], [place] [address] * (ABNORMAL) CBC WITH DIFFERENTIAL (12/03/2008 4:33 AM CDT) HEMOGLOBIN 13.5(L) 13.6 - 16.5 g/dL [facility] RDW 13.1 11.5 - 14.5 % [facility] WBC 15.2(H) 4.0 - 9.8 K/uL [facility] MCH 30.5 27.2 - 32.6 pg [facility] MPV 10.9 9.3 - 12.4 fL [facility] HEMATOCRIT 39.8(L) 40.0 - 48.0 % [facility] RDW-STDEV 43.0 37.1 - 48.7 fL [facility] RBC 4.43(L) 4.50 - 5.40 M/uL [facility] MCHC 33.9 31.5 - 35.5 % [facility] MCV 89.8 82.0 - 99.0 fL [facility] PLATELETS 227 140 - 350 K/uL [facility] EOSINOPHIL ABSOLUTE 0.07 0.00 - 0.70 K/uL [facility] LYMPHOCYTES 15(L) 16 - 45 % [facility] LYMPHOCYTE ABSOLUTE 2.32 0.70 - 4.50 K/uL [facility] BASOPHILS 0 0 - 2 % [facility] BASOPHILS ABSOLUTE 0.00 0.00 - 0.20 K/uL [facility] MONOCYTES 9 3 - 13 % [facility] MONOCYTE ABSOLUTE 1.29 0.10 - 1.30 K/uL [facility] NEUTROPHILS 76(H) 45 - 70 % [facility] NEUTROPHIL ABSOLUTE 11.52(H) 1.90 - 7.00 K/uL [facility] EOSINOPHILS 1 0 - 7 % [facility] Blood specimen (specimen) 12/03/2008 4:33 AM CDT 12/03/2008 4:36 AM CDT us Corey Nicole MD HEMATOLOGY ORDERABLES Edited INTERFACE SYSTEM Refer to clinic/hospital department [facility] CLIA# [id number] [address] [place], [place] [address] * MRSA ACTIVE SURVEILLANCE (12/02/2008 3:43 PM CDT) PRELIMINARY REPORT Pending [facility] FINAL REPORT No methicillin resistant Staphylococcus aureus isolated. [facility] Андрей 12/02/2008 3:43 PM CDT 12/03/2008 7:19 AM CDT us Corey Nicole MD MICROBIOLOGY - GENERAL ORDER MARLENY Final Result Performing Organization Address [facility] de Phone Number INTERFACE SYSTEM Refer to clinic/hospital department [facility] CLIA# [id number] [address] [place] [address] * HEMOGLOBIN AND HEMATOCRIT (12/02/2008 6:30 AM CDT) HEMOGLOBIN 15.7 13.6 - 16.5 g/dL [facility] HEMATOCRIT 45.1 40.0 - 48.0 % [facility] Blood specimen (specimen) 12/02/2008 6:30 AM CDT 12/02/2008 6:41 AM CDT us Carlos Hernandez MD HEMATOLOGY ORDERABLES Final Res ult Performing Organization Address [facility] de Phone Number INTERFACE SYSTEM Refer to clinic/hospital department [facility] CLIA# [id number] [address], [place] [address] * PT AND APTT (12/02/2008 6:30 AM CDT) INR 1.0 0.9 - 1.1 [facility] Comment: INR Therapeutic Range: Adult: 2.0 - 3.0 for pulmonary embolism or prophylaxis against venous thrombosis or systemic embolization. 2.0 - 3.0 for patients with tissue heart valves. 2.5 - 3.5 for patients with mechanical heart valves or post [place]. Pediatric (12 years and under): 1.5 - 3.0 Although the target range in children is not well established, INR values of 1.5 - 3.0 are recommended for most patients. Higher values have been used in children with prosthetic cardiac valves and hereditary clotting disorders. (<3 days) therapeutic ranges have not been established. PROTIME 12.8 12.7 - 15.1 Seconds [facility] PTT 31.5 24.4 - 36.4 Seconds [facility] Comment: PTT Therapeutic Range: Heparin Level [...] Edited INTERFACE SYSTEM Refer to clinic/hospital department [facility] CLIA# [id number] [address] [place], [place] [address] * BASIC METABOLIC PANEL (12/02/2008 6:30 AM CDT) POTASSIUM 3.9 3.5 - 4.9 mmol/L [facility] BUN 20 6 - 20 mg/dL [facility] CHLORIDE 104 96 - 108 mmol/L [facility] GLUCOSE 92 65 - 99 mg/dL [facility] SODIUM 139 135 - 145 mmol/L [facility] CALCIUM 9.5 8.6 - 10.2 mg/dL [facility] CO2 25 22 - 30 mmol/L [facility] CREATININE 0.87 0.67 - 1.17 mg/dL [facility] GFR, >60 >=60 mL/min/1.7 sq meter [facility] GFR >60 >=60 mL/min/1.7 sq meter [facility] Comment: Modification of Diet in Renal Disease (MDRD) study formula. Estimated GFR rate interpretative information for both Americans and non- Americans is available on the [facility] Intranet at: [email or web address] Select: Lab Policies and Procedures Select: Reference Ranges - GFR Blood specimen (specimen) 12/02/2008 6:30 AM CDT 12/02/2008 6:41 AM CDT us Carlos Hernandez MD CHEMISTRY ORDERABLES Edited Performing Organization Address [facility] de Phone Number INTERFACE SYSTEM Refer to clinic/hospital department [facility] CLIA# [id number] [address] [place] [address] * TYPE AND SCREEN (12/02/2008 6:09 AM CDT) ABO/RH TYPE A Negative [facility] HISTORY CHECK No Historical ABO/Rh [facility] SPECIMEN LIFE 3 days from drawdate [facility] ANTIBODY SCREEN Negative [facility] Blood specimen (specimen) 12/02/2008 6:09 AM CDT us Carlos Hernandez MD BLOOD BANK ORDERABLES Edited Performing Organization Address [facility] Phone Number INTERFACE SYSTEM Refer to clinic/hospital department [facility] CLIA# [id number] [address] [place] [address] documented in this encounter Visit Diagnoses Not on filedocumented in this encounter
== END 2025-07-13 11:52 | disposition left against medical advice (07) ==
PROVIDERS: PCP Student in an Organized Health Care Education/Training Program
DX: S00.83XA Contusion of other part of head, initial encounter (principal); Y09 Assault by unspecified means
CPT/HCPCS: 99199